=== PATIENT | female | born 2000 | race Two or more races ===

== ENCOUNTER 2024-08-10 02:40 | Emergency (ER) | payer OTHER, MEDICAID ==
[~2024-08-10] VITALS: Ht 149.9 cm; Wt 65.1 kg
[2024-08-10] MEDS ORDERED: PRED15SO33 PO (02:52)
[2024-08-10] MEDS ORDERED: CEFD300C2 PO (02:52)
--- NOTE | 2024-08-10 02:53 | ED.PDOC ---
Eye-HPI HPI Comments This is a 24-year-old female presents to the ED chief complaint bilateral ear pain times 24 hours. Patient states pain started in her right ear and awoke suddenly tonight with left ear pain. States pain is 8/10 sharp in nature nonradiating type pain. Has taken [id number] Tylenol with little relief. Patient also reports has been sick over the past 4 days cold-like symptoms. Does state sound is muffled. Denies dizziness, chest pain, shortness of breath, difficulty breathing, nausea, vomiting, recent travel, recent under water activities reports no known ill contacts. Time Seen by MD: 02:42 Reviewed Notes: Nurses Notes, Medications, Allergies Allergies: Coded Allergies: Erythromycin (Verified Allergy, Unknown, 08/10/24) Penicillins (Verified Allergy, Unknown, 08/10/24) Home Meds Active Scripts Prednisolone (Prednisolone) 15 Mg/5 Ml Pamela, 5 ML PO DAILY for 5 Days, #25 ML Prov:ILEANA LUNSFORD [facility] 08/10/24 Cefdinir (Cefdinir) 300 Mg Cap, 1 CAP PO BID for 7 Days, #14 CAP Prov:ILEANA LUNSFORD [facility] 08/10/24 Information Source: Patient Past Medical History PAST MEDICAL HISTORY: Denies Surgical History: Denies all surgeries CUSTODY ASSISTANT History: No Pertinent CUSTODY ASSISTANT History Family History Family History: Unknown Social History Smoker: Non-Smoker Alcohol: Denies ETOH Use Drugs: Denies Drug Use Constitutional: denies: chills, diaphoresis, fatigue, fever, malaise, sweats, weakness, others EENTM: reports: ear pain, nasal discharge; denies: blurred vision, double vision, ear bleeding, ear discharge, ear drainage, ear ringing, eye pain, eye redness, hearing loss, mouth pain, mouth swelling, nose bleeding, nose congestion, nose pain, photophobia, tearing, throat pain, throat swelling, voice changes, others Respiratory: denies: cough, hemoptysis, orthopnea, SOB at rest, shortness of breath, SOB with excertion, stridor, wheezing, others Cardiovascular: denies: chest pain, dizzy spells, diaphoresis, Dyspnea on exertion, edema, irregular heart beat, left arm pain, lightheadedness, palpitations, PND, syncope, others Gastrointestinal: denies: abdomen distended, abdominal pain, blood streaked bowels, constipated, diarrhea, dysphagia, difficulty swallowing, hematemesis, melena, nausea, poor appetite, poor fluid intake, rectal bleeding, rectal pain, vomiting, others Genitourinary: denies: abnormal vagina bleeding, burning, dyspareunia, dysuria, flank pain, frequency, hematuria, incontinence, pain, , vagina discharge, urgency, others Neurological: denies: dizziness, fainting, headache, left sided numbness, left sided weakness, numbness, paresthesia, pre-existing deficit, right sided n umbness, right sided weakness, seizure, speech problems, tingling, tremors, weakness, others Musculoskeletal: denies: back pain, gout, joint pain, joint swelling, muscle pain, muscle stiffness, neck pain, others Integumetry: denies: bruises, change in color, change in hair/nails, dryness, laceration, lesions, lumps, rash, wounds, others Allergic/Immunocompromised: denies: Difficulty Healing, Frequent Infections, Hives, Itching, others Hematologic/Lymphatic: denies: anemia, blood clots, easy bleeding, easy bruising, swollen glands, others Endocrine: denies: excessive hunger, excessive sweating, excessive thirst, excessive urination, flushing, intolerance to cold, intolerance to heat, unexplained weight gain, unexplained weight loss, others Psychiatric: denies: anxiety, bipolar disorder, depression, hopeless, panic disorder, schizophrenia, sleepless, suicidal, others Physical Exam General Appearance: No Apparent Distress, Normal HEENT: Pharynx Normal, TMs Normal, Other (Bilateral Ear canals moderately edematous and erythemic, no noted drainage TMs intact) Neck: Full Range of Motion, Non-Tender, Normal, Normal Inspection Respiratory: Chest Non-Tender, Lungs Clear, No Accessory Muscle Use, No Respiratory Distress, Normal Breath Sounds Cardiovascular: No Edema, No JVD, No Murmur, No Gallop, Normal Peripheral Pulses, Regular Rate/Rhythm Breast Exam: Deferred Gastrointestinal: No Organomegaly, Non Tender, No Pulsatile Mass, Normal Bowel Sounds, Soft Genitalia: Deferred Pelvic: Deferred Rectal: Deferred Extremities: Normal capillary refill, Normal inspection, Normal range of motion, Non-tender, No pedal edema Musculoskeletal : Apperance: Normal Neurologic: Alert, lpta II-XII nml as Tested, No Motor Deficits, Normal Affect, Normal Mood, No Sensory Deficits Cerebellar Function: Normal Reflexes: Normal Skin: Dry, Normal Color, Warm Lymphatic: No Adenopathy Was a procedure done? Was a procedure done?: No EENT DIFF Eye: N/A Ear: Cerumen Impaction, Foreign Body, Otitis Externa, Barotrauma, Otitis Media, Perforation, Dental, Pharyngitis X-Ray, Labs, Meds, VS Vital Signs Date Time Temp Pulse Resp B/P (MAP) Pulse Ox O2 Delivery O2 Flow Rate FiO2 08/10/24 03:20 66 16 98 Room Air 08/10/24 03:20 98.4 66 16 120/80 (93) 98 98.4 08/10/24 02:55 98.4 66 16 120/80 (93) 98 98.4 Current Medications Medications (Trade) Dose Ordered Sig/Carlos Route Start Time Stop Time Status Last Admin Ceftriaxone Sodium (Rocephin) 1,000 mg ONCE ONCE IM 08/10/24 03:00 08/10/24 03:01 DC 08/10/24 03:17 Dexamethasone Sodium Phosphate (Decadron Injection) 10 mg ONCE ONCE IM 08/10/24 03:00 08/10/24 03:01 DC 08/10/24 03:16 X-Ray, Labs, Meds, VS Comment Patient reports allergic to penicillin she notes only hives and rash denies anaphylaxis. Patient given Rocephin 1 g IM and Decadron 10 mg IM tolerated well reports improvement requesting discharge at this time. Script cefdinir and Orapred advised take medications as prescribed side effects discussed. Advised to rest increase p.o. fluids with electrolytes [id number] Tylenol or Motrin as needed for the pain fever per labeled dosing instructions. Follow up with your PCP in 1-2 days as necessary. ER return precautions given patient indicates understanding agrees with discharge plan of care. Time of 1ST Reevaluation: 02:52 Reevaluation 1ST: Unchanged Time of 2ND Reevaluation: 03:26 Reevaluation 2ND: Improved Patient Education/Counseling: Diagnosis, Treatment, Prognosis, Need For Follow Up Family Education/Counseling: No Family Present Departure 1 Departure Time of Disposition: 03:26 Impression: Primary Impression: Diffuse otitis externa, bilateral Qualified Codes: H60.313 - Diffuse otitis externa, bilateral Disposition: 01 HOME / SELF CARE / HOMELESS Condition: Stable e-Prescriptions Prednisolone (Prednisolone) 15 Mg/5 Ml Pamela 5 ML PO DAILY for 5 Days, #25 ML Prov: ILEANA LUNSFORD 08/10/24 Cefdinir (Cefdinir) 300 Mg Cap 1 CAP PO BID for 7 Days, #14 CAP Prov: ILEANA LUNSFORD 08/10/24 Discharged With: Self Critical Care Note Critical Care Time?: No Stability Stability form required: No ILEANA LUNSFORD Aug 10, 2024 02:53
[2024-08-10] MEDS: DexAMETHasone SOD PHOS 10MG/1ML VIAL INJ IM ONE (03:16)
[2024-08-10] MEDS: cefTRIAXone SOD 1,000 MG VL IM ONE (03:17)
[2024-08-10 03:20] VITALS: BP 120/80; PULSE 66; RESP 16; TEMP 98.4; O2SAT 98
== END 2024-08-10 04:02 | disposition home or self-care (01) ==
LOC: ER 02:40
DX: H60.93 Unspecified otitis externa, bilateral (principal); Z88.0 Allergy status to penicillin; Z88.1 Allergy status to other antibiotic agents
CPT/HCPCS: 96372; 99284; J0696; J1100